=== PATIENT | female | born 1950 | race Caucasian/White ===

== ENCOUNTER 2018-11-11 08:30 | Outpatient (CLI) | payer MEDICARE ==
--- NOTE | 2018-11-11 09:04 | ULT ---
FUS Gallbladder RUQ History: [Elevated transaminases] Comparison: None. Findings: Real-time grayscale and color evaluation of the right upper quadrant of the abdomen was per formed. Pancreas not well seen. Visualized portion of the pancreatic head is normal. Liver measures 13 cm in length. Mild increased hepatic echotexture diffusely. No mass. Common bile duct measures 5 mm, normal. Portal vein is patent with antegrade flow. The right kidney measures 10.2 x 4 x 4.4 cm without mass, hydronephrosis, or abnormal calcifications. Impression: Mild diffuse increased hepatic echotexture suggesting steatosis.
== END 2018-11-11 08:31 | disposition home or self-care (01) ==
LOC: NAV ULT 08:30
PROVIDERS: ATTEND Family Medicine
DX: R74.0 Nonspecific elevation of levels of transaminase and lactic acid dehydrogenase [LDH] (principal); R93.2 Abnormal findings on diagnostic imaging of liver and biliary tract
CPT/HCPCS: 76705

== ENCOUNTER 2018-11-30 07:33 | Emergency (ER) | payer MEDICARE ==
[2018-11-30 08:37] LABS: Band 9 % (5-11); Eosinophils 1 % (0-10); Hemoglobin 17.8 g/dL (12.0-16.0); Lymphocytes 34 % (21-51); MDiff Complete? YES; Mean Corpuscular HGB CONC 32.6 g/dL (32.0-36.0); Mean Corpuscular Hemoglobin 32.3 pg (27.0-31.0); Mean Corpuscular Volume 99.1 fL (78.0-98.0); Mean Platelet Volume 7.8 fL (7.4-10.4); Metamyelocyte 1 % (0-0); Monocytes 1 % (0-10); Neutrophil 54 % (42-75); Platelet Count 284 thou/uL (130-400); Platelet Morphology Comment Appears Adequate; RBC Distribution Width 10.9 % (11.5-14.5); RBC Morphology Normal; Red Blood Cell (RBC) Count 5.52 mill/uL (4.20-5.40); White Blood Cell (WBC) Count 13.5 thou/uL (4.8-10.8)
[2018-11-30 08:38] LABS: CRP (Inflammatory) 6.67 mg/dL (= or < 0.5); Uric Acid 4.4 mg/dL (2.6-6.0)
[2018-11-30 08:40] LABS: ALT (SGPT) 14 U/L (8-55); AST (SGOT) 14 U/L (5-34); Albumin 4.3 g/dL (3.4-4.8); Alkaline Phosphatase 85 U/L (40-150); Anion Gap 17 mmol/L (10-20); BUN (Urea Nitrogen) 7 mg/dL (9.8-20.1); Bilirubin, Total 1.3 mg/dL (0.2-1.2); Calc. Creatinine Clearance 0 mL/min (70-130); Calcium 10.4 mg/dL (7.8-10.44); Carbon Dioxide 27 mmol/L (23-31); Chloride 93 mmol/L (98-107); Estimated GFR-MDRD 80; Globulin 3.2 g/dL (2.4-3.5); Glucose 114 mg/dL (80-115); Potassium 4.6 mmol/L (3.5-5.1); Protein, Total 7.5 g/dL (6.0-8.3); Sodium 132 mmol/L (136-145)
[2018-11-30] MEDS ORDERED: Indomethacin 25 mg Capsule ONE (09:16)
--- NOTE | 2018-11-30 09:16 | RAD ---
LEFT WRIST FOUR VIEWS: INDICATIONS: Pain and edema. FINDINGS: Soft tissue prominence about the left wrist is present. There is no acute fracture or malalignment s een. 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 IMPRESSION: 1. No acute osseous abnormality of the left wrist. 2. Soft tissue prominence. Correlate clinically. POS: [facility]
== END 2018-11-30 09:23 | disposition home or self-care (01) ==
LOC: NAV ERS 07:33
DX: M10.9 Gout, unspecified (principal); I10 Essential (primary) hypertension; F17.210 Nicotine dependence, cigarettes, uncomplicated
CPT/HCPCS: 80053; 84550; 85025; 86140

== ENCOUNTER 2023-08-08 09:20 | Emergency (ER) | payer MEDICARE, SELFPAY ==
[2023-08-08] MEDS ORDERED: Sodium Chloride 0.9% 1,000 ML ONE (10:38)
[2023-08-08] MEDS ORDERED: Ondansetron PF 4 MG/2 ML Vial ONE (10:38)
[2023-08-08 10:52] LABS: ALT (SGPT) 36 U/L (8-55); AST (SGOT) 100 U/L (5-34); Albumin 3.7 g/dL (3.4-4.8); Alkaline Phosphatase 182 U/L (40-110); Anion Gap 14 mmol/L (10-20); BUN (Urea Nitrogen) 11 mg/dL (9.8-20.1); Bilirubin, Total 1.7 mg/dL (0.2-1.2); Calc. Creatinine Clearance 0 mL/min (70-130); Calcium 10.1 mg/dL (7.8-10.44); Carbon Dioxide 27 mmol/L (23-31); Chloride 102 mmol/L (98-107); Estimated GFR 93; Globulin 3.3 g/dL (2.4-3.5); Glucose 128 mg/dL (83-110); Lipase 14 U/L (8-78); Potassium 3.2 mmol/L (3.5-5.1); Sodium 140 mmol/L (136-145)
[2023-08-08 10:53] LABS: Troponin I 0.027 ng/mL (< 0.028)
[2023-08-08 11:06] LABS: #Basophils 0.1 thou/uL (0.0-0.2); #Lymphocytes 0.7 thou/uL (1.20-3.40); #Monocytes 0.5 thou/uL (0.11-0.59); #Neutrophils 6.7 thou/uL (1.40-6.50); %Basophils 0.1 % (0.0-1.0); %Lymphocytes 8.5 % (21.0-51.0); %Monocytes 6.7 % (0.0-10.0); %Neutrophils 84.1 % (42.0-75.0); Hematocrit 37.1 % (36.0-47.0); Mean Corpuscular HGB CONC 35.1 g/dL (32.0-36.0); Mean Corpuscular Hemoglobin 36.4 pg (27.0-31.0); Platelet Count 129 10x3/uL (130-400); RBC Distribution Width 10.9 % (11.5-14.5); Red Blood Cell (RBC) Count 3.57 mill/uL (4.20-5.40)
[2023-08-08] MEDS ORDERED: Potassium Chloride 20 MEQ TAB ONE (11:09)
[2023-08-08 11:27] LABS: Macrocytosis SLIGHT = 6-15 cells (100X) (0-5/hpf); Platelet Adequacy Comment Appears Adequate
== END 2023-08-08 12:00 | disposition home or self-care (01) ==
LOC: NAV ERS 09:20
DX: K52.9 Noninfective gastroenteritis and colitis, unspecified (principal); R42 Dizziness and giddiness; E87.6 Hypokalemia; G25.2 Other specified forms of tremor; R74.01 Elevation of levels of liver transaminase levels; I10 Essential (primary) hypertension; F17.210 Nicotine dependence, cigarettes, uncomplicated; E78.00 Pure hypercholesterolemia, unspecified; Z79.899 Other long term (current) drug therapy
CPT/HCPCS: 80053; 83605; 83690; 84484; 85025; 87804; 93005; 96361; 96374; J2405; J7050